=== PATIENT | female | born 1995 | race African-American/Black ===

== ENCOUNTER 2025-04-11 17:47 | Emergency (ER) | payer OTHER, SELFPAY ==
[2025-04-11] MEDS ORDERED: Ondansetron PF 4 MG/2 ML Vial ONE (18:08)
== END 2025-04-11 19:45 | disposition home or self-care (01) ==
LOC: ERS 17:47
DX: R51.9 Headache, unspecified (principal); V89.2XXA Person injured in unspecified motor-vehicle accident, traffic, initial encounter
CPT/HCPCS: 70450; 72125; 96374; 96375; J3010